=== PATIENT | female | born 1945 | race Two or more races ===

== ENCOUNTER 2020-10-16 18:20 | Inpatient (IN) ==
[2020-10-16] MEDS ORDERED: CARDIZEM INJ IVP STA (18:24)
[2020-10-16] MEDS ORDERED: CARDIZEM 125 MG in SODIUM CHLORIDE 100 ML IV SCH ×2 (18:30→20:00)
--- NOTE | 2020-10-16 18:34 | ED.PDOC ---
General ED Provider: Dr. LAKESHIA MORENO Chief Complaint: Palpitations Stated Complaint: Pt presents with chest palpitations. Sxs started earlier today and have been persistent all day. She has had associated SOB and has felt weak all over. She denies any F/C/N/V/diaphoresis. She denies any focal weakness. Nothing else has made her sxs better or worse and they are mild in nature. Time Seen by Provider: 10/16/20 18:24 Mode of Arrival: Wheelchair Information Source: Patient Primary Care Provider: HEATHER CORONA Sepsis Protocol: For patient's 13 years and over: Temp is 96.8 and below OR 101 and greater Pulse >90 BPM Resp >20/minute Acutely Altered Mental Status Are patient's symptoms suggestive of a new infection, such as: -Pneumonia -Skin, Soft Tissue -Endocarditis -UTI -Bone, Joint Infection -Implantable Device -Acute Abdominal Infection -Wound Infection -Meningitis -Blood Stream Catheter Infection -Unknown Review of Systems Review Of Systems Constitutional: Reports No symptoms Eyes: Reports No symptoms Ears, Nose, Mouth, Throat: Reports No symptoms Respiratory: Reports Short of air Cardiac: Reports Irregular heart rate and Lightheadedness GI: Reports No symptoms : Reports No symptoms Musculoskeletal: Reports No symptoms Skin: Reports No symptoms Neurological: Reports No symptoms Endocrine: Reports No symptoms Hematologic/Lymphatic: Reports No symptoms All Other Systems: Reviewed and Negative Physical Exam Physical Exam Appearance: Reports Well-appearing, No pain distress and Well-nourished Ill-appearing: None Pain Distress: None Eyes: Reports NATHALIE, EOMI and Conjunctiva clear ENT: Reports Not Examined Neck: Supple Respiratory: Reports Airway patent, Breath sounds clear, Breath sounds equal and Respirations nonlabored Cardiovascular: Reports Pulses normal, Irregular rhythm and Tachycardia GI/: Reports Soft, Nontender and Bowel sounds normal Musculoskeletal: Reports Normal strength, ROM intact, No edema and No calf tenderness Skin: Reports Warm, Dry and Normal color Neurological: Reports Sensation intact, Motor intact, Cranial nerves intact, Alert and Oriented Psychiatric: Reports Affect appropriate and Mood appropriate Interpretation EKG Interpretation Time of EKG #1: 18:36 Rate: Tachy Rhythm: Other (afib) Ectopy: None [place]: NL ST Segment: Normal Interpretation: Mild T-wave abnormalities Course Course Hematology/Chemistry: 10/16/20 18:41 10/16/20 18:41 Orders, Labs, Meds: Lab Review 10/16/20 10/16/20 18:41 18:41 WBC 6.20 RBC 4.63 Hgb 13.9 Hct 41.6 MCV 89.8 MCH 30.0 MCHC 33.4 RDW Coeff of Shalini 12.7 Plt Count 244 Immature Gran % (Auto) 0.3 Neut % (Auto) 50.7 Lymph % (Auto) 37.1 [place] % (Auto) 8.7 Eos % (Auto) 2.7 Baso % (Auto) 0.5 Neut # (Auto) 3.1 Lymph # (Auto) 2.3 [place] # (Auto) 0.5 Eos # (Auto) 0.2 Baso # (Auto) 0.0 Immature Gran # (Auto) 0.0 Sodium 140.6 Potassium 4.13 Chloride 104.9 Carbon Dioxide 26.9 Anion Gap 12.93 BUN 27.1 H Creatinine 1.39 H Estimated GFR (MDRD) 37.00 BUN/Creatinine Ratio 19.49 Glucose 98.2 Calcium 9.95 Total Bilirubin 0.93 AST 33.7 ALT 31.0 Alkaline Phosphatase 97.8 Total Creatine Kinase 162.8 H CK-MB (CK-2) 2.460 H CK-MB (CK-2) % 1.5100 Troponin I < 0.012 Total Protein 7.77 Albumin 4.52 Globulin 3.25 Albumin/Globulin Ratio 1.39 Amylase 101.3 Lipase 124.5 Orders Category Date Time Status EKG-(ED ONLY) Stat CARDIO 10/16/20 18:25 Completed AMYLASE Stat LAB 10/16/20 18:41 Completed CBC W/ AUTO DIFF Stat LAB 10/16/20 18:41 Completed COMPREHENSIVE METABOLIC PANEL Stat LAB 10/16/20 18:41 Completed CREATINE KINASE Stat LAB 10/16/20 18:41 Completed LIPASE Stat LAB 10/16/20 18:41 Completed RESPIRATORY PANEL 2.1 (PCR) Stat LAB 10/16/20 18:34 Received TROPONIN I Stat LAB 10/16/20 18:41 Completed Apixaban [Eliquis] MEDS 10/16/20 18:50 Discontinued 5 mg PO ONCE STA Diltiazem HCl [Cardizem Inj] MEDS 10/16/20 18:24 Discontinued 15 mg IVP ONCE STA Diltiazem HCl [Cardizem] 125 mg MEDS 10/16/20 18:30 Active 0.9 % Sodium Chloride [Sodium Chloride] 100 ml IV TITRATION Sodium Chloride 0.9% [Sodium Chloride] 1,000 ml MEDS 10/16/20 19:48 Active IV BOLUS CHEST, 1V AP ONLY Stat RADS 10/16/20 18:25 Completed Medications Generic Name Dose Route Start Last Admin Trade Name Freq PRN Reason Stop Dose Admin Diltiazem HCl 125 mg/ Sodium 125 mls @ 5 mls/hr 10/16/20 18:30 10/16/20 19:37 Chloride IV Not Given TITRATION ALYCE Protocol 5 MG/HR Sodium Chloride 1,000 mls @ 1,000 mls/hr 10/16/20 19:48 Sodium Chloride IV 10/16/20 20:47 BOLUS STA Discontinued Medications Generic Name Dose Route Start Last Admin Trade Name Freq PRN Reason Stop Dose Admin Apixaban 5 mg 10/16/20 18:50 Apixaban 5 Mg Tab PO 10/16/20 18:51 ONCE STA Diltiazem HCl 15 mg 10/16/20 18:24 10/16/20 19:31 Diltiazem Hcl Inj 25 Mg/5 Ml Vial IVP 10/16/20 18:25 15 mg ONCE STA Administration Vital Signs: Temp Pulse Resp BP Pulse Ox 10/16/20 18:22 97.0 F L 108 H 20 153/123 H 99 PILI Risk Score PILI Risk Score: Risk Score Odds of by 30D 0 0.1 (0.1-0.2) 1 0.3 (0.2-0.3) 2 0.4 (0.3-0.5) 3 0.7 (0.6-0.9) 4 1.2 (1.0-1.5) 5 2.2 (1.9-2.6) 6 3.0 (2.5-3.6) 7 4.8 (3.8-6.1) Discharge Plan Discharge Patient Disposition: ADMITTED INPATIENT Discharge Problem: Atrial fibrillation with rapid ventricular response, Palpitations ED Provider: LAKESHIA MORENO Condition: Stable Physician Progress Note: I reviewed pt results. CBC is unremarkable. Chems show a Cr. of 1.4. Her CK is 163 with a Trop that is negative. CXR is unremarkable. HR is beter at around 90-100 but she remains in Afib. I spoke with Dr. Nieto and he recommended admitting her here with his consult. He can order and Echo and we can see if she converts. She will be started in Eliquis.
[2020-10-16 18:45] LABS: BASOPHILS % (AUTO) 0.5 % (0.0-3.0); EOSINOPHILS # (AUTO) 0.2 K/ul (0.0-0.7); EOSINOPHILS % (AUTO) 2.7 % (0.0-7.0); HEMATOCRIT 41.6 % (37.0-47.0); HEMOGLOBIN 13.9 g/dl (12.0-16.0); IMMATURE GRANULOCYTE % (AUTO) 0.3 % (0.0-5.0); LYMPHOCYTES # (AUTO) 2.3 K/uL (0.60-3.4); LYMPHOCYTES % (AUTO) 37.1 (10.0-50.0); MEAN CORPUSCULAR HGB CONC 33.4 (31.8-35.4); MEAN CORPUSCULAR VOLUME 89.8 fl (81.0-99.0); MONOCYTES # (AUTO) 0.5 K/uL (0.4-2.0); MONOCYTES % (AUTO) 8.7 (0-10); NEUTROPHILS # (AUTO) 3.1 K/ul (2.0-6.9); NEUTROPHILS % (AUTO) 50.7 % (42.2-75.2); PLATELET COUNT 244 10^3/uL (140-440); RDW COEFFICIENT OF VARIATION 12.7 % (11.6-14.8); RED BLOOD COUNT 4.63 10^6/ul (4.20-5.40)
[2020-10-16] MEDS ORDERED: ELIQUIS PO STA (18:50)
[2020-10-16 19:04] LABS: ALBUMIN 4.52 g/dL (3.5-5.0); ALKALINE PHOSPHATASE 97.8 U/L (53-141); AMYLASE 101.3 U/L (30-110); ASPARTATE AMINO TRANSFERASE 33.7 U/L (14-36); BILIRUBIN,TOTAL 0.93 mg/dL (0.2-1.3); BLOOD UREA NITROGEN 27.1 mg/dL (7-17); CALCIUM 9.95 mg/dL (8.4-10.2); CARBON DIOXIDE 26.9 mmol/L (22-30.0); CHLORIDE 104.9 mmol/L (98-107); CREATINE KINASE 162.8 U/L (30-135); CREATININE 1.39 mg/dL (0.60-1.30); GLUCOSE 98.2 mg/dL (74-106); LIPASE 124.5 U/L (23-300); POTASSIUM 4.13 mmol/L (3.5-5.1); SODIUM 140.6 mmol/L (134.5-145); TOTAL PROTEIN 7.77 g/dL (6.3-8.2)
[2020-10-16 19:14] LABS: TROPONIN I < 0.012 ng/ml (0.0000-0.120)
--- NOTE | 2020-10-16 19:35 | DI ---
EXAM: Single AP view of the chest 10/16/2020 HISTORY: Chest discomfort. COMPARISON: None. FINDINGS: There is no focal consolidation or large pleural effusion. There is hyperinflation of the lungs, whic h could be seen in COPD. The trachea is midline. The cardiomediastinal silhouette is within the normal limits. The osseous structures are intact. IMPRESSIONS: No focal consolidation, large pleural effusion, or discernible pneumothorax. COPD changes.
[2020-10-16 19:48] LABS: BORDETELLA PARAPERTUSSIS (PCR) NOT DETECTED (NOT DETECT); BORDETELLA PERTUSSIS (PCR) NOT DETECTED (NOT DETECT); CHLAMYDIA PNEUMONIAE (PCR) NOT DETECTED (NOT DETECT); CORONAVIRUS 229E (PCR) NOT DETECTED (NOT DETECT); CORONAVIRUS HKU1 (PCR) NOT DETECTED (NOT DETECT); CORONAVIRUS NL63 (PCR) NOT DETECTED (NOT DETECT); CORONAVIRUS OC43 (PCR) NOT DETECTED (NOT DETECT); HUMAN METAPNEUMOVIRUS (PCR) NOT DETECTED (NOT DETECT); HUMAN RHINOVIRUS/ENTEROV (PCR) NOT DETECTED (NOT DETECT); INFLUENZA B (PCR) NOT DETECTED (NOT DETECT); MYCOPLASMA PNEUMONIAE (PCR) NOT DETECTED (NOT DETECT); PARAINFLUENZA VIRUS 1 (PCR) NOT DETECTED (NOT DETECT); PARAINFLUENZA VIRUS 2 (PCR) NOT DETECTED (NOT DETECT); PARAINFLUENZA VIRUS 3 (PCR) NOT DETECTED (NOT DETECT); PARAINFLUENZA VIRUS 4 (PCR) NOT DETECTED (NOT DETECT); RESPIRATORY SYNCYTIAL V (PCR) NOT DETECTED (NOT DETECT); SARS_COV_2 (PCR) NOT DETECTED (NOT DETECT)
[2020-10-16] MEDS ORDERED: SODIUM CHLORIDE 1,000 ML IV STA (19:48)
[2020-10-16] MEDS ORDERED: NITROSTAT SL PRN (19:59)
[2020-10-16 20:38] LABS: ADENOVIRUS (PCR) NOT DETECTED (NOT DETECT)
[2020-10-17 00:47] VITALS: BMI 36.6
[2020-10-17 05:11] LABS: CHOLESTEROL 163.4 mg/dL (0-200); HDL CHOLESTEROL 40.1 mg/dL (35-80); TRIGLYCERIDES 189.4 mg/dL (0-150)
[2020-10-17] MEDS ORDERED: ATROPINE SULFATE PFS IVP PRN (07:16)
[2020-10-17] MEDS ORDERED: TYLENOL PO PRN (07:16)
[2020-10-17 07:56] LABS: BASOPHILS % (AUTO) 0.7 % (0.0-3.0); EOSINOPHILS # (AUTO) 0.2 K/ul (0.0-0.7); EOSINOPHILS % (AUTO) 2.9 % (0.0-7.0); HEMATOCRIT 36.2 % (37.0-47.0); HEMOGLOBIN 11.9 g/dl (12.0-16.0); IMMATURE GRANULOCYTE % (AUTO) 0.3 % (0.0-5.0); LYMPHOCYTES # (AUTO) 1.7 K/uL (0.60-3.4); LYMPHOCYTES % (AUTO) 29.7 (10.0-50.0); MEAN CORPUSCULAR HEMOGLOBIN 29.8 pg (27.0-31.0); MEAN CORPUSCULAR HGB CONC 32.9 (31.8-35.4); MEAN CORPUSCULAR VOLUME 90.7 fl (81.0-99.0); MONOCYTES # (AUTO) 0.6 K/uL (0.4-2.0); MONOCYTES % (AUTO) 9.6 (0-10); NEUTROPHILS # (AUTO) 3.3 K/ul (2.0-6.9); NEUTROPHILS % (AUTO) 56.8 % (42.2-75.2); PLATELET COUNT 217 10^3/uL (140-440); RDW COEFFICIENT OF VARIATION 12.6 % (11.6-14.8); RED BLOOD COUNT 3.99 10^6/ul (4.20-5.40); WHITE BLOOD COUNT 5.83 K/ul (4.6-10.2)
[2020-10-17 08:05] LABS: CREATINE KINASE 114.5 U/L (30-135)
[2020-10-17] MEDS ORDERED: ASPIRIN EC PO SCH (08:30)
[2020-10-17 08:35] LABS: TROPONIN I < 0.012 ng/ml (0.0000-0.120)
[2020-10-17] MEDS ORDERED: SODIUM CHLORIDE 1,000 ML IV SCH ×2 (09:00→12:00)
[2020-10-17] MEDS ORDERED: COZAAR PO SCH ×2 (09:00)
--- NOTE | 2020-10-17 09:03 | PCM.PROG ---
Attending Provider: ATTENDING PROVIDER: Dr. LAKESHIA MORENO This patient is seen with Marlen Woods, Nurse Practitioner. DATE OF SERVICE: 10/17/20 SUBJECTIVE: This 75 year old OTHER F was hospitalized 10/16/20. The patient is resting comfortably. Cardizem drip stopped this morning. The patient denies any palpitation. yesterday morning started with palpitations, shortness of breath and weakness which persisted throughout the day. She has no known cardiac history. REVIEW OF SYSTEMS: CONSTITUTIONAL: No night sweats. Fatigue. No fever or chills. HEENT: Eyes: No visual changes. No eye pain. No eye discharge. ENT: No runny nose. No epistaxis. No sinus pain. No odynophagia. No congestion. RESPIRATORY: No cough, no congestion. No hemoptysis. No shortness of breath. CARDIOVASCULAR: No angina symptoms. No CHF symptoms. No atypical chest pain for CAD. Palpitations. No orthopnea.. GASTROINTESTINAL: No abdominal pain. No nausea or vomiting. No diarrhea or constipation. No hematemesis. No hematochezia. GENITOURINARY: No urgency. No frequency. No dysuria. No hematuria. No obstructive symptoms. No discharge. No pain. No significant abnormal bleeding. MUSCULOSKELETAL: No musculoskeletal pain; no joint swelling. NEUROLOGICAL: Awake, alert, oriented to time, place and person. No headache. No neck pain. No syncope. No seizures. No dizziness. PSYCHIATRIC: Not anxious. No depression. No suicidal thoughts. No homicidal thoughts. SKIN: No rash. No lesions. No wounds. ENDOCRINE: No unexplained weight loss. No weight gain. HEMATOLOGIC/LYMPHATIC: No anemia. No purpura. No petechiae. No prolonged or excessive bleeding. No palpable lymph nodes. PHYSICAL EXAMINATION: GENERAL: The patient is awake, alert and oriented, lying in bed in no distress. VITAL SIGNS: Temperature 97.6 F, Pulse 60, Respiratory Rate 18, BP 120/74, Pulse Ox 98% HEENT: Head normocephalic, atraumatic. Eyes: Extraocular muscles are intact. Pupils are equal, round and reactive to light and accommodation. Ears: No lesions. Nose appeared normal. Throat: No exudate or erythema. NECK: Supple. No JVD, no carotid bruit. No lymphadenopathy or thyromegaly. LUNGS: Clear to auscultation. Percussion note normal. Chest symmetrical. HEART: S1, S2, no S3. No murmurs. No cyanosis or clubbing. No ascites. Pulses: Dorsalis pedis and posterior tibial pulses +1 to +2 both sides. ABDOMEN: Soft. Non-tender. Bowel sounds active. No CVA tenderness. No mass felt. EXTREMITIES: No edema. Full range of motion of all extremities, equal. NEUROLOGIC: No focal deficit. Cranial nerves II through XII are grossly intact. No headache. No double vision. SKIN: Not dry. Intact. Turgor-normal. LYMPHATIC: No palpable lymph nodes/no lymphedema. MUSCULOSKELETAL: Normal joints with no swelling. Muscle tone is normal. LAB REVIEW: 10/17/20 07:49 10/16/20 18:41 10/17/20 07:49: WBC 5.83, RBC 3.99 L, Hgb 11.9 L, Hct 36.2 L, MCV 90.7, MCH 29.8, MCHC 32.9, RDW Coeff of Shalini 12.6, Plt Count 217, Immature Gran % (Auto) 0.3, Neut % (Auto) 56.8, Lymph % (Auto) 29.7, [place] % (Auto) 9.6, Eos % (Auto) 2.9, Baso % (Auto) 0.7, Neut # (Auto) 3.3, Lymph # (Auto) 1.7, [place] # (Auto) 0.6, Eos # (Auto) 0.2, Baso # (Auto) 0.0, Immature Gran # (Auto) 0.0 10/17/20 04:53: Triglycerides 189.4 H, Cholesterol 163.4, LDL Cholesterol, Calc 85, VLDL Cholesterol 38 H, HDL Cholesterol 40.1, Cholesterol/HDL Ratio 4.1 L 10/17/20 04:53: Troponin I < 0.012 10/16/20 18:41: TSH 2.670 10/16/20 18:41: Sodium 140.6, Potassium 4.13, Chloride 104.9, Carbon Dioxide 26.9, Anion Gap 12.93, BUN 27.1 H, Creatinine 1.39 H, Estimated GFR (MDRD) 37.00, BUN/Creatinine Ratio 19.49, Glucose 98.2, Calcium 9.95, Total Bilirubin 0.93, AST 33.7, ALT 31.0, Alkaline Phosphatase 97.8, Total Creatine Kinase 162.8 H, CK-MB (CK-2) 2.460 H, CK-MB (CK-2) % 1.5100, Troponin I < 0.012, Total Protein 7.77, Albumin 4.52, Globulin 3.25, Albumin/Globulin Ratio 1.39, Amylase 101.3, Lipase 124.5 10/16/20 18:41: WBC 6.20, RBC 4.63, Hgb 13.9, Hct 41.6, MCV 89.8, MCH 30.0, MCHC 33.4, RDW Coeff of Shalini 12.7, Plt Count 244, Immature Gran % (Auto) 0.3, Neut % (Auto) 50.7, Lymph % (Auto) 37.1, [place] % (Auto) 8.7, Eos % (Auto) 2.7, Baso % (Auto) 0.5, Neut # (Auto) 3.1, Lymph # (Auto) 2.3, [place] # (Auto) 0.5, Eos # (Auto) 0.2, Baso # (Auto) 0.0, Immature Gran # (Auto) 0.0 10/16/20 18:34: Adenovirus (PCR) Not detected, B. pertussis DNA (PCR) Not detected, B.parapertussis DNA PCR Not detected, C. pneumoniae DNA (PCR) Not detected, Coronavirus OC43 (PCR) Not detected, Coronavirus HKU1 (PCR) Not detected, Coronavirus 229E (PCR) Not detected, Coronavirus NL63 (PCR) Not detected, Human Metapneumovir PCR Not detected, Influenza Type A (PCR) Not detected, Influenza B (RT-PCR) Not detected, M. pneumoniae (PCR) Not detected, Parainfluenza 1 (PCR) Not detected, Parainfluenza 2 (PCR) Not detected, Parainfluenza 3 (PCR) Not detected, Parainfluenza 4 (PCR) Not detected, RSV (PCR) Not detected, Entero/Rhino (PCR) Not detected, SARS-CoV-2 (PCR) Not detected ASSESSMENT: Please see below. 1. New onset atrial fibrillation, rate now controlled 2. Hypertension 3. Obesity 4. Dyslipdiemia PLAN: 1. T4 and TSH 2. A1c 3. Eliquis 5mg BID 4. Cardizem 60mg BID 5. Losartan 50mg daily 6. 2D echo 7. CHADS score III 8. U/A Plan and coordination of the patient's care discussed in the presence of Continuing Education Specialist and nurse. SCRIBED BY: Anastasia AGUILERA scribed while in presence of service performed by Dr. Nieto/Marlen Woods APRN on 10/17/20 ([id number])
[2020-10-17 09:06] LABS: ALANINE AMINOTRANSFERASE 23.9 U/L (0-35); ALBUMIN 3.74 g/dL (3.5-5.0); ALKALINE PHOSPHATASE 73.7 U/L (53-141); ASPARTATE AMINO TRANSFERASE 34.4 U/L (14-36); BILIRUBIN,TOTAL 0.81 mg/dL (0.2-1.3); BLOOD UREA NITROGEN 26.5 mg/dL (7-17); CALCIUM 9.11 mg/dL (8.4-10.2); CARBON DIOXIDE 24.5 mmol/L (22-30.0); CHLORIDE 108.7 mmol/L (98-107); CREATININE 1.03 mg/dL (0.60-1.30); GLUCOSE 114.9 mg/dL (74-106); POTASSIUM 3.49 mmol/L (3.5-5.1); SODIUM 141.1 mmol/L (134.5-145); TOTAL PROTEIN 6.66 g/dL (6.3-8.2)
--- NOTE | 2020-10-17 09:07 | CONS ---
DATE OF CONSULTATION: 10/17/2020 REASON FOR CONSULTATION: Atrial fibrillation with rapid ventricular response. HISTORY OF PRESENT ILLNESS: The patient was hospitalized through the emergency room. The patient had fluttering and palpitation with weakness and shortness of breath the morning of hospitalization. The patient EKG had atrial fibrillation with rapid ventricular response 130 per minute. The patient had severe hypertension in the ER noted. The patient has been on Cardizem drip to control her rate to 90-110 per minute. Early this morning at 1:30 am after being in atrial fibrillation more than 12 hours the patient converted to sinus rhythm. REVIEW OF SYSTEMS: CONSTITUTIONAL: No night sweats. No fatigue, malaise, lethargy. No fever or chills. HEENT: Eyes: No visual changes. No eye pain. No eye discharge. ENT: No sinus drainage. No epistaxis. No sinus pain. No sore throat. No odynophagia. No ear pain. No congestion. RESPIRATORY: No cough, no congestion. No hemoptysis. No shortness of breath. CARDIOVASCULAR: No angina symptoms. No CHF symptoms. No atypical chest pain for CAD. No palpitations. No orthopnea. GASTROINTESTINAL: No abdominal pain. No nausea or vomiting. No diarrhea or constipation. No hematemesis. No hematochezia. GENITOURINARY: No urgency. No frequency. No dysuria. No hematuria. No obstructive symptoms. No discharge. No pain. No significant abnormal bleeding. MUSCULOSKELETAL: No musculoskeletal pain. No joint swelling. NEUROLOGICAL: No headache. No neck pain. No syncope. No seizures. No dizziness. PSYCHIATRIC: Not anxious. No depression. No suicidal thoughts. No homicidal thoughts. SKIN: No rash. No lesions. No wounds. ENDOCRINE: No unexplained weight loss. No weight gain. HEMATOLOGIC/LYMPHATIC: No anemia. No purpura. No petechiae. No prolonged or excessive bleeding. No palpable lymph nodes. PHYSICAL EXAMINATION: HEENT: Head normocephalic, atraumatic. Eyes: Extraocular muscles are intact. Pupils are equal, round and reactive to light and accommodation. Ears: No lesions. Nose appeared normal. Throat: No exudate or erythema. NECK: Supple. No JVD, no carotid bruit. No lymphadenopathy or thyromegaly. LUNGS: Clear to auscultation. Percussion note normal. Chest symmetrical. HEART: S1, S2, no S3. No murmurs. No cyanosis or clubbing. No ascites. Pulses: Dorsalis pedis and posterior tibial pulses +2 bilaterally. ABDOMEN: Soft. Nontender. Bowel sounds active. No CVA tenderness. No mass felt. EXTREMITIES: No edema. Full range of motion of all extremities, equal. NEUROLOGIC: No focal deficit. Cranial nerves II through XII are grossly intact. No headache, no double vision or headache. SKIN: Not dry. Intact. Turgor - normal. LYMPHATIC: No palpable lymph nodes/no lymphedema. MUSCULOSKELETAL: Normal joints with no swelling. Muscle tone is normal. ASSESSMENT: 1. New onset atrial fibrillation, now converted to sinus rhythm CHADS II VASC SCORE 2. Hypertension 3. Obesity 4. Dyslipdiemia RECOMMENDATIONS: 1. Start Cardizem 60mg BID which has already been done. 2. Losartan 50mg daily 3. 2D echo to evaluate LV function and LA size and valvular structures. 4. Discontinue Amlodipine 5. Continue Atorvastatin ADDENDUM: The patient is in sinus rhythm. Echocardiogram was done which showed normal LV contractility with LVH, enlarged LA cavity which is 4.4cm, There was thrombi noted, valvular structures normal. RECOMMENDATION: 1. Continue Eliquis 2. The patient's atrial fibrillation load 12 hours initially so to rule out paroxysmal atrial fibrillation having repetition on symptoms atrial fibrillation the patient could be followed as an outpatient with no evidence of atrial fibrillation by symptoms or event monitor that could be done 6 weeks from now. The patient can go off Eliquis but until then she needs to be on Eliquis and closely followed. 3. Discontinue Amlodipine as she is going to be on Cardizem. 4. We will increase the Cardizem depending upon the patient's rate. 5. Eliquis discussed with intracranial bleed and GI bleed and not to use it with nonsteroidal antiinflammatory. The patient's condition is stable for now. Thanks for referral. Will follow. RUELD
[2020-10-17] MEDS: LIPITOR PO SCH (09:15)
[2020-10-17] MEDS: CARDIZEM PO SCH ×2 (09:16→20:46)
[2020-10-17] MEDS: ELIQUIS PO SCH ×2 (09:16→20:46)
[2020-10-17 10:25] LABS: BILIRUBIN,URINE Negative (NEGATIVE); CLARITY,URINE Clear (CLEAR); COLOR,URINE Yellow (YELLOW); GLUCOSE, URINE (UA) Negative (NEGATIVE); KETONES,URINE Negative (NEGATIVE); LEUKOCYTE ESTERASE ,URINE 1+ (NEGATIVE); NITRITE,URINE Negative (NEGATIVE); PROTEIN,URINE Negative (NEGATIVE); URINE, BLOOD Negative (NEGATIVE); UROBILINOGEN,URINE 0.2 (0.2)
[2020-10-17 10:37] LABS: MUCUS,URINE TRACE (NOT PRESENT); SQUAMOUS EPITHELIAL CELL,UR 0-2 (0-5)
[2020-10-17 15:40] LABS: CREATINE KINASE 99.4 U/L (30-135)
[2020-10-17 15:56] LABS: TROPONIN I < 0.012 ng/ml (0.0000-0.120)
[2020-10-17] MEDS ORDERED: NORVASC PO SCH (21:00)
[2020-10-17] MEDS ORDERED: MACRODANTIN PO SCH (21:00)
[2020-10-17] MEDS ORDERED: PRILOSEC PO SCH (21:00)
[2020-10-17] MEDS ORDERED: TENORMIN PO SCH (21:00)
[2020-10-17] MEDS ORDERED: COZAAR PO ONE (21:59)
[2020-10-18] MEDS ORDERED: SODIUM CHLORIDE 1,000 ML IV SCH (01:30)
[2020-10-18 05:08] LABS: BASOPHILS % (AUTO) 0.7 % (0.0-3.0); EOSINOPHILS # (AUTO) 0.2 K/ul (0.0-0.7); EOSINOPHILS % (AUTO) 3.8 % (0.0-7.0); HEMATOCRIT 35.6 % (37.0-47.0); HEMOGLOBIN 11.3 g/dl (12.0-16.0); IMMATURE GRANULOCYTE % (AUTO) 0.5 % (0.0-5.0); LYMPHOCYTES # (AUTO) 1.8 K/uL (0.60-3.4); LYMPHOCYTES % (AUTO) 43.2 (10.0-50.0); MEAN CORPUSCULAR HEMOGLOBIN 29.7 pg (27.0-31.0); MEAN CORPUSCULAR HGB CONC 31.7 (31.8-35.4); MEAN CORPUSCULAR VOLUME 93.7 fl (81.0-99.0); MONOCYTES # (AUTO) 0.4 K/uL (0.4-2.0); MONOCYTES % (AUTO) 8.6 (0-10); NEUTROPHILS # (AUTO) 1.8 K/ul (2.0-6.9); NEUTROPHILS % (AUTO) 43.2 % (42.2-75.2); PLATELET COUNT 180 10^3/uL (140-440); RDW COEFFICIENT OF VARIATION 12.7 % (11.6-14.8); WHITE BLOOD COUNT 4.19 K/ul (4.6-10.2)
[2020-10-18 06:10] VITALS: BP 155/77; TEMP 97.1
[2020-10-18 06:56] LABS: ALANINE AMINOTRANSFERASE 20.9 U/L (0-35); ALBUMIN 3.59 g/dL (3.5-5.0); ALKALINE PHOSPHATASE 74.2 U/L (53-141); ASPARTATE AMINO TRANSFERASE 25.2 U/L (14-36); BILIRUBIN,TOTAL 0.77 mg/dL (0.2-1.3); BLOOD UREA NITROGEN 21.8 mg/dL (7-17); CALCIUM 8.83 mg/dL (8.4-10.2); CARBON DIOXIDE 25.8 mmol/L (22-30.0); CREATININE 0.94 mg/dL (0.60-1.30); POTASSIUM 3.72 mmol/L (3.5-5.1); TOTAL PROTEIN 6.27 g/dL (6.3-8.2)
[2020-10-18] MEDS ORDERED: TENORMIN PO ONE (08:54)
[2020-10-18] MEDS ORDERED: K-DUR PO ONE (08:55)
[2020-10-18] MEDS ORDERED: COZAAR PO SCH (09:00)
[2020-10-18] MEDS: CARDIZEM PO SCH (09:06)
[2020-10-18] MEDS: ELIQUIS PO SCH (09:07)
[2020-10-18] MEDS: LIPITOR PO SCH (09:07)
--- NOTE | 2020-10-18 09:07 | PCM.CONS ---
CONSULTING PROVIDER: Dr. MITZY CRYSTAL ATTENDING PROVIDER: Dr. LAKESHIA MORENO DATE OF SERVICE: 10/18/20 SUBJECTIVE: This 75 year old OTHER F was hospitalized 10/16/20 with atrial fibrillation with rapid ventricular response. The patient is controlled with sinus rhythm. She converted to sinus rhythm on her own with 4-5 hours after admission to the floor. Total duration of atrial fibrillation was approximately 12-14 hours. REVIEW OF SYSTEMS: CONSTITUTIONAL: No night sweats. No fatigue, malaise, lethargy. No fever or chills. HEENT: Eyes: No visual changes. No eye pain. No eye discharge. ENT: No runny nose. No epistaxis. No sinus pain. No odynophagia. No congestion. RESPIRATORY: No cough, no congestion. No hemoptysis. No shortness of breath. CARDIOVASCULAR: No angina symptoms. No CHF symptoms. No atypical chest pain for CAD. No palpitations. No orthopnea. GASTROINTESTINAL: No abdominal pain. No nausea or vomiting. No diarrhea or constipation. No hematemesis. No hematochezia. GENITOURINARY: No urgency. No frequency. No dysuria. No hematuria. No obstructive symptoms. No discharge. No pain. No significant abnormal bleeding. MUSCULOSKELETAL: No musculoskeletal pain; no joint swelling. NEUROLOGICAL: Awake, alert, oriented to time, place and person. No headache. No neck pain. No syncope. No seizures. No dizziness. PSYCHIATRIC: Not anxious. No depression. No suicidal thoughts. No homicidal thoughts. SKIN: No rash. No lesions. No wounds. ENDOCRINE: No unexplained weight loss. No weight gain. HEMATOLOGIC/LYMPHATIC: No anemia. No purpura. No petechiae. No prolonged or excessive bleeding. No palpable lymph nodes. PHYSICAL EXAMINATION: GENERAL: The patient is awake, alert and oriented, lying in bed in no distress. VITAL SIGNS: Temperature 97.1 F, Pulse 60, Respiratory Rate 16, BP 155/77, Pulse Ox 98% HEENT: Head normocephalic, atraumatic. Eyes: Extraocular muscles are intact. Pupils are equal, round and reactive to light and accommodation. Ears: No lesions. Nose appeared normal. Throat: No exudate or erythema. NECK: Supple. No JVD, no carotid bruit. No lymphadenopathy or thyromegaly. LUNGS: Clear to auscultation. Percussion note normal. Chest symmetrical. HEART: S1, S2, no S3. No murmurs. No cyanosis or clubbing. No ascites. Pulses: Dorsalis pedis and posterior tibial pulses +1 to +2 both sides. ABDOMEN: Soft. Non-tender. Bowel sounds active. No CVA tenderness. No mass felt. EXTREMITIES: No edema. Full range of motion of all extremities, equal. NEUROLOGIC: No focal deficit. Cranial nerves II through XII are grossly intact. No headache, no double vision or headache. SKIN: Warm and dry. Intact. Turgor-normal. LYMPHATIC: No palpable lymph nodes/no lymphedema. MUSCULOSKELETAL: Normal joints with no swelling. Muscle tone is normal. LAB REVIEW: 10/18/20 04:45 10/18/20 04:45 10/18/20 04:45: Sodium 140.0, Potassium 3.72, Chloride 109.0 H, Carbon Dioxide 25.8, Anion Gap 8.92, BUN 21.8 H, Creatinine 0.94, Estimated GFR (MDRD) 58.00, BUN/Creatinine Ratio 23.19, Glucose 90.0, Calcium 8.83, Total Bilirubin 0.77, AST 25.2, ALT 20.9, Alkaline Phosphatase 74.2, Total Protein 6.27 L, Albumin 3.59, Globulin 2.68, Albumin/Globulin Ratio 1.33 10/18/20 04:45: WBC 4.19 L, RBC 3.80 L, Hgb 11.3 L, Hct 35.6 L, MCV 93.7, MCH 29.7, MCHC 31.7 L, RDW Coeff of Shalini 12.7, Plt Count 180, Immature Gran % (Auto) 0.5, Neut % (Auto) 43.2, Lymph % (Auto) 43.2, [place] % (Auto) 8.6, Eos % (Auto) 3.8, Baso % (Auto) 0.7, Neut # (Auto) 1.8 L, Lymph # (Auto) 1.8, [place] # (Auto) 0.4, Eos # (Auto) 0.2, Baso # (Auto) 0.0, Immature Gran # (Auto) 0.0 10/17/20 15:23: Total Creatine Kinase 99.4, Troponin I < 0.012 10/17/20 09:55: Troponin I < 0.012 10/17/20 09:40: Urine Color Yellow, Urine Clarity Clear, Urine pH 5.0, Ur Specific [place] 1.020, Urine Protein Negative, Urine Glucose (UA) Negative, Urine Ketones Negative, Urine Blood Negative, Urine Nitrite Negative, Urine Bilirubin Negative, Urine Urobilinogen 0.2, Ur Leukocyte Esterase 1+ H, Urine Mi croscopic WBC 10-20, Ur Squamous Epith Cells 0-2, Urine Mucus Trace 10/17/20 07:49: Free T4 1.50 10/17/20 07:49: Hemoglobin A1c 5.86 10/17/20 07:49: Total Creatine Kinase 114.5, Troponin I < 0.012 10/17/20 07:49: Sodium 141.1, Potassium 3.49 L, Chloride 108.7 H, Carbon Dioxide 24.5, Anion Gap 11.39, BUN 26.5 H, Creatinine 1.03, Estimated GFR (MDRD) 52.00, BUN/Creatinine Ratio 25.72, Glucose 114.9 H, Calcium 9.11, Total Bilirubin 0.81, AST 34.4, ALT 23.9, Alkaline Phosphatase 73.7, Total Protein 6.66, Albumin 3.74, Globulin 2.92, Albumin/Globulin Ratio 1.28 10/16/20 18:41: Thyroxine (T4) 10.4 ASSESSMENT: 1. Atrial fibrillation paroxysmal CHADS score of . 2. Hypertension 3. Dyslipidemia 4. Obesity Please see below. RECOMMENDATIONS/PLAN: 1. Discontinue Omeprazole 2. The patient is on Eliquis, Cardizem, Atenolol and Losartan along with Atorvastatin and Prilosec 3. Eliquis education carried out with side effects of GI bleed and intracranial bleed. No non-steroidal anti-inflammatory 4. The patient was told to followup by me and again I had seen the patient on consult and I would like to see the patient on Wednesday morning to which she agreed. If she goes into palpitations and last more than 5 minutes advised to take extra Cardizem and keeping legs up. If it still continues after half an hour to come to the emergency room. 5. The patient's echocardiogram showed LVH with La cavity 4.5cm with normal LV contractility and normal valvular structures. 6. The patient is also advised to discontinued caffeine containing products in excess 7. The patient's potassium on discharge is 3.49 borderline low, she will be started on Potassium supplements to be taken for 5 days CONDITION: Stable SCRIBED BY: Anastasia AGUILERA scribed while in presence of service performed by Dr. MITZY CRYSTAL on 10/18/20 ([id number])
--- NOTE | 2020-10-18 09:20 | PCM.PROG ---
Date Seen by Provider: 10/18/20 Time Seen by Provider: 06:00 Subjective: feels better, Denies any chest pain, palpitations or shortness of breath. has been seen and Followed by Cemetery Counselor. had an Echo yesterday. Objective: Vitals: T=97.1 F, P=60, R=16, FA=013/77, SPO2=98 HEENT: [mucus membranes moist ] Neck: [supple] Lungs: [Clinically clear bilaterally ] CVS: [Regular S1 and S2 only ] Abdomen: [] Extremities: [no Edema ] Neurological: [AAOx3 no focal deficits ] Skin: [No rash ] Lab/Tests/Diagnostic Imaging: [ See lab tab. See ECHO results. THIS AM EKG - Normal sinus Rate 62, IA interval 186] Electrolytes reviewed unremarkable. (1) Atrial fibrillation with rapid ventricular response: Status: Acute Code(s): I48.91 - Unspecified atrial fibrillation SNOMED Code(s): 775229972635590 Assessment: Resolved now in Normal SINUS. Appreciate Cardiology input. on anticoagulation for stroke prevention. Feels well ready to go home. Plan: Discharge planning and follow up Per fixture designer. See discharge summary.
--- NOTE | 2020-10-18 10:45 | CM.DICTOOL ---
ADMISSION: 10/16/20 21:09 DISCHARGE: OCTOBER 18, 2020 DATE OF SERVICE: 10/18/20 FINAL DIAGNOSIS NEW ONSET ATRIAL FIBRILLATION, RATE NOW CONTROLLED HYPERTENSION OBESITY DYSLIPIDEMIA HYPOKALEMIA HX: COLOVESICAL FISTULA DIVERTICULITIS ESSENTIAL HYPERTENSION GERD MILD INTERMITTENT ASTHMA MIXED HYPERLIPIDEMIA RECURRENT UTI - ON MACROBID PROPHYLAXIS OBESITY POST-MENOPAUSAL PRIMARY OA INVOLVING MULTIPLE JOINTS VIT D DEFICIENCY PROCEDURES: CARDIAC CATH X 2 , ONE PER DR. WEATHERS WITH MINIMAL BLOCKAGE, 2ND AT [facility] ( RECORDS TO BE REQUESTED ) ? DATES CHOLECYSTECTOMY COLON SURGERY INCISIONAL HERNIA REPAIR INGUINAL HERNIA REPAIR, RIGHT JOINT REPLACEMENT TOTAL KNEE ARTHROPLASTY LEFT TOTAL KNEE ARTHROPLASTY RIGHT 06/16/2018 TUBAL LIGATION CODE STATUS: FULL CODE LAST VITALS Temp Pulse Resp BP Pulse Ox 97.1 F L 60 16 155/77 H 98 10/18/20 06:00 10/18/20 06:00 10/18/20 07:29 10/18/20 06:00 10/18/20 06:00 TAKE THESE MEDICATIONS AT HOME Apixaban (Apixaban 5 Mg Tab) 5 mg PO BID [facility] -- ( NEW) Last Admin: 10/18/20 09:07 Dose: 5 mg Atorvastatin Calcium (Atorvastatin Calcium 20 Mg Tablet) 20 mg PO QAM [facility] Last Admin: 10/18/20 09:07 Dose: 20 mg Diltiazem HCl (Diltiazem Hcl 60 Mg Tablet) 60 mg PO Q12HR [facility] -- (NEW) Last Admin: 10/18/20 09:06 Dose: 60 mg Losartan Potassium (Losartan Potassium 25 Mg Tablet) 100 mg PO DAILY IN THE AM [facility] -- ( HOME MED) Last Admin: 10/18/20 09:06 Dose: 100 mg Nitrofurantoin Macrocrystals (Nitrofurantoin Macrocrystal 50 Mg Capsule) 100 mg PO BEDTIME [facility] Last Admin: 10/17/20 20:48 Dose: Not Given Omeprazole (Omeprazole 20 Mg Capsule.Dr) 20 mg PO BEDTIME [facility] Last Admin: 10/17/20 20:45 Dose: 20 mg POTASSIUM 20 MEQ PO BID X 5 DAYS -- ( NEW) ATENOLOL 25 MG PO IN THE AM -- ( CHANGED HOME MED) VITAMIN D 50,000 UNITS PO WEEKLY -- ( HOME MED) ALLERGIES levofloxacin [From Levaquin] Adverse Reaction (Verified 10/16/20 21:06) metronidazole [From Flagyl] Adverse Reaction (Verified 10/16/20 21:06) sulfamethoxazole Adverse Reaction (Verified 10/16/20 21:06) DISCONTINUED MEDICATIONS 1). AMLODIPINE 2). ASPIRIN 3). ATENOLOL 100 MG BY MOUTH DAILY ( DOSAGE WAS CHANGED) NEW PRESCRIPTIONS: 1). POTASSIUM 20 MEQ PO BID X 5 DAYS 2). COZAAR 100 MG PO IN THE AM 3). ATENOLOL CHANGED TO 25 MG PO IN THE AM 4). ELIQUIS 5 MG PO BID 5). CARDIZEM 60 MG PO BID SMOKING: N/A DISEASE SPECIFIC EDUCATION: A-FIB HYPERTENSION MEDICATIONS ACTIVITY PRECAUTIONS BLEEDING PRECAUTIONS HEART HEALTHY DIET COVID 19/ PRECAUTIONS LAB REVIEW: 10/18/20 04:45 10/18/20 04:45 10/18/20 04:45: Sodium 140.0, Potassium 3.72, Chloride 109.0 H, Carbon Dioxide 25.8, Anion Gap 8.92, BUN 21.8 H, Creatinine 0.94, Estimated GFR (MDRD) 58.00, BUN/Creatinine Ratio 23.19, Glucose 90.0, Calcium 8.83, Total Bilirubin 0.77, AST 25.2, ALT 20.9, Alkaline Phosphatase 74.2, Total Protein 6.27 L, Albumin 3.59, Globulin 2.68, Albumin/Globulin Ratio 1.33 10/18/20 04:45: WBC 4.19 L, RBC 3.80 L, Hgb 11.3 L, Hct 35.6 L, MCV 93.7, MCH 29.7, MCHC 31.7 L, RDW Coeff of Shalini 12.7, Plt Count 180, Immature Gran % (Auto) 0.5, Neut % (Auto) 43.2, Lymph % (Auto) 43.2, [place] % (Auto) 8.6, Eos % (Auto) 3.8, Baso % (Auto) 0.7, Neut # (Auto) 1.8 L, Lymph # (Auto) 1.8, [place] # (Auto) 0 .4, Eos # (Auto) 0.2, Baso # (Auto) 0.0, Immature Gran # (Auto) 0.0 10/17/20 15:23: Total Creatine Kinase 99.4, Troponin I < 0.012 10/17/20 09:55: Troponin I < 0.012 10/17/20 09:40: Urine Color Yellow, Urine Clarity Clear, Urine pH 5.0, Ur Specific [place] 1.020, Urine Protein Negative, Urine Glucose (UA) Negative, Urine Ketones Negative, Urine Blood Negative, Urine Nitrite Negative, Urine Bilirubin Negative, Urine Urobilinogen 0.2, Ur Leukocyte Esterase 1+ H, Urine Microscopic WBC 10-20, Ur Squamous Epith Cells 0-2, Urine Mucus Trace 10/16/20 18:41: Thyroxine (T4) 10.4 PLAN: DISCHARGE: HOME TODAY, INDEPENDENT ACTIVITY: UP TOLERATED WITH NO ASSISTIVE DEVICE NO STRENUOUS ACTIVITY UNTIL RELEASED BY MD STAY IN DOORS WHILE HOT OUTSIDE BLEEDING PRECAUTIONS PANDEMIC PRECAUTIONS DIET: HEART HEALTHY FOLLOW UP: DR. CRYSTAL/ ZACKARY DIAZ APRN/ KENYA SHAVER APRN IN THE OFFICE ON 10/22/2020 @ 10:[address] CRYSTAL WOULD FOLLOW A PCP, DR. CRYSTAL ACCEPTED CALL IF ANY CONCERNS@ [phone] [id number] CODE STATUS: FULL CODE MRS GREENWOOD IS ALERT AND ORIENTED X 4. SHE HAS REMAINED PLEASANT. SHE HAS DENIED ANY SOA SINCE ED VISIT. LUNGS ARE CLEAR. SHE IS UP TOLERATED WITH NO ASSISTIVE DEVICE AND NO FURTHER WEAKNESS. SKIN IS WARM AND DRY AND INTACT. NO UNUSUAL BRUISING OR BLEEDING NOTED. SHE FEEDS SELF AND CONSUMES 75% OF MEALS. SHE IS DRINKING ADEQUATE AMOUNT OF FLUIDS. SHE IS CONTINENT OF BOWEL AND BLADDER WITH LAST BM 10/17/2020. SHE LIVES WITH HER AND IS INDEPENDENT. SHE VERBALIZED ELIQUIS PRECAUTIONS, SHE STATED HER TAKES IT. MD ZACKARY FELIX APRN ALYCE HANNAN, APRN
--- NOTE | 2020-10-22 11:52 | ECHO2D ---
Date of Exam: 10/17/2020 Ordering Physician: DR. MITZY CRYSTAL Room #: 102 Reason for Echo: NEW ONSET ATRIAL FIBRILLATION,PALPITATIONS, HTN, RENAL DISEASE M-Mode Normal Adult Results LV Dimensions Normal Adult Results AoV Opening excursions >1.6 >1.6 LVEDD-base- 3.5-5.8 4.9 Ao root dimensions 2.0-3.7 3.4 LVESD-base- 3.1-4.6 L. Atrium dimensions 1.9-3.8 4.5 Post. Wall thickness 0.8-1.1 1.1 IV septum (thickness) 0.7-1.2 1.4 Post. Wall excursion 0.72-1.3 NORMAL Septal motion NORMAL Systolic motion R. Ventricular cavity 1.5-2.0 NORMAL LVEF 60% 58% Paradoxical septal wall motion NORMAL 2-D : 2-D M Mode Echocardiogram was performed using apical four chamber and left parasternal long and short axis views. Mitral, tricuspid and aortic valves appear to be normal. Contractility of the left ventricle seems to be normal, so is the cavity size. Enlarged Left atrial cavity size. Aortic root appears to be normal. There is no pericardial effusion. There is no thrombus noted in the left ventricle or left atrial cavity. M-MODE: MV: NORMAL AV: NORMAL TV: NORMAL PV: CHAMBER SIZE: ENLARGED LEFT ATRIAL CAVITY WALL MOTION: NORMAL PERICARDIUM: NORMAL INTERPRETATION: 1. 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 NORMAL VALVES 3. NORMAL LEFT VENTRICLE CONTRACTILITY MTDD
--- NOTE | 2020-10-22 12:59 | DS ---
DATE OF SERVICE: 10/18/20 CODE STATUS: FULL CODE FINAL DIAGNOSIS: 1. NEW ONSET ATRIAL FIBRILLATION, RATE NOW CONTROLLED 2. HYPERTENSION 3. OBESITY 4. DYSLIPIDEMIA 5. HYPOKALEMIA HX: 6. COLOVESICAL FISTULA 7. DIVERTICULITIS 8. ESSENTIAL HYPERTENSION 9. GERD 10. MILD INTERMITTENT ASTHMA 11. MIXED HYPERLIPIDEMIA 12. RECURRENT UTI - ON MACROBID PROPHYLAXIS 13. OBESITY 14. POST-MENOPAUSAL 15. PRIMARY OA INVOLVING MULTIPLE JOINTS 16. VIT D DEFICIENCY PROCEDURES: 17. CARDIAC CATH X 2, ONE PER DR. WEATHERS WITH MINIMAL BLOCKAGE, 2ND AT [facility] (RECORDS TO BE REQUESTED) ? DATES 18. CHOLECYSTECTOMY 19. COLON SURGERY 20. INCISIONAL HERNIA REPAIR 21. INGUINAL HERNIA REPAIR, RIGHT 22. JOINT REPLACEMENT 23. TOTAL KNEE ARTHROPLASTY LEFT 24. TOTAL KNEE ARTHROPLASTY RIGHT 06/16/2018 25. TUBAL LIGATION LAST VITALS Temp Pulse Resp BP Pulse Ox 97.1 F L 60 16 155/77 H 98 10/18/20 06:00 10/18/20 06:00 10/18/20 07:29 10/18/20 06:00 10/18/20 06:00 DISCHARGE INSTRUCTIONS: 1. DISCHARGE: HOME TODAY, INDEPENDENT 2. FOLLOW UP: DR. CRYSTAL/ZACKARY DIAZ APRN/KENYA SHAVER APRN IN THE OFFICE ON 10/22/2020 @ 10:00, PATIENT ASKED IF DR. CRYSTAL WOULD FOLLOW A PCP, DR. CRYSTAL ACCEPTED. CALL IF ANY CONCERNS@ [phone]. [address] [facility]. [id number]. MEDICATIONS AT DISCHARGE: Apixaban (Apixaban 5 Mg Tab) 5 mg PO BID [facility] -- ( NEW) Last Admin: 10/18/20 09:07 Dose: 5 mg Atorvastatin Calcium (Atorvastatin Calcium 20 Mg Tablet) 20 mg PO QAM [facility] Last Admin: 10/18/20 09:07 Dose: 20 mg Diltiazem HCl (Diltiazem Hcl 60 Mg Tablet) 60 mg PO Q12HR [facility] -- (NEW) Last Admin: 10/18/20 09:06 Dose: 60 mg Losartan Potassium (Losartan Potassium 25 Mg Tablet) 100 mg PO DAILY IN THE AM [facility] -- ( HOME MED) Last Admin: 10/18/20 09:06 Dose: 100 mg Nitrofurantoin Macrocrystals (Nitrofurantoin Macrocrystal 50 Mg Capsule) 100 mg PO BEDTIME [facility] Last Admin: 10/17/20 20:48 Dose: Not Given Omeprazole (Omeprazole 20 Mg Capsule.Dr) 20 mg PO BEDTIME [facility] Last Admin: 10/17/20 20:45 Dose: 20 mg POTASSIUM 20 MEQ PO BID X 5 DAYS -- (NEW) ATENOLOL 25 MG PO IN THE AM -- (CHANGED HOME MED) VITAMIN D 50,000 UNITS PO WEEKLY -- (HOME MED) NEW PRESCRIPTIONS: POTASSIUM 20 MEQ PO BID X 5 DAYS COZAAR 100 MG PO IN THE AM ATENOLOL CHANGED TO 25 MG PO IN THE AM ELIQUIS 5 MG PO BID CARDIZEM 60 MG PO BID DISCONTINUED MEDICATIONS: AMLODIPINE ASPIRIN ATENOLOL 100 MG BY MOUTH DAILY ( DOSAGE WAS CHANGED) DIET INSTRUCTIONS: HEART HEALTHY ACTIVITY: UP TOLERATED WITH NO ASSISTIVE DEVICE NO STRENUOUS ACTIVITY UNTIL RELEASED BY MD STAY IN DOORS WHILE HOT OUTSIDE BLEEDING PRECAUTIONS PANDEMIC PRECAUTIONS SMOKING: N/A DISEASE SPECIFIC EDUCATION: A-FIB HYPERTENSION MEDICATIONS ACTIVITY PRECAUTIONS BLEEDING PRECAUTIONS HEART HEALTHY DIET COVID 19/PANDEMIC PRECAUTIONS HOSPITAL COURSE: 75-year-old white female was hospitalized with atrial fibrillation, rapid ventricular response. The patient's duration of symptoms, palpitations since morning of hospitalization. The patient's heart rate was approximately 130 to 140/min. The blood pressure was elevated. The patient was treated in the emergency room with Cardizem drip. The patient did not have any myocardial event. Once the rate was controlled, the patient started feeling a lot better. The next morning, the patient was seen and examined by me. Cardiovascular status was stable. Rate was 90 to 100/min. The patient converted to sinus rhythm approximately 14 hours after her onset of atrial fibrillation on her own. The patient had hypotension. She was taken off Atenolol, Losartan for the timebeing. The patient was continued to be monitored. She continued to be in sinus rhythm. Echo showed normal LV contractility. LV size was normal. LA cavity was 4.4 cm. Valvular structures are normal. No thrombus or thrombi were noted. The patient was restarted at the time of discharge on Cozaar to be taken 100 mg every day. Potassium supplements were given because of mild hypokalemia which is to be taken for five days. Atenolol was changed to 25 mg in the morning. Eliquis 5 mg twice a day, Cardizem 60 mg twice a day. The patient has been thoroughly explained about Eliquis and side effects like GI bleed and intracranial bleed. I strongly advised not to take any nonsteroidal antiinflammatory with it. CHADS VASC score was considered for medications like Amiodarone or Flecainide or Multag but again she was not started on it. These medictions could be used to keep the patient in sinus rhythm. Again, the patient is going to be followed as an outpatient. She is going to be seen on Wednesday. Expressed the desire to be followed by me and make me also her primary care. CONDITION AT TIME OF DISCHARGE: Stable. TIME SPENT: More than 60 minutes. EFRA
--- NOTE | 2020-10-22 13:06 | CONS ---
BILLING 10/17/20 CONSULTATION 10/18/20 DISCHARGE SUMMARY EXTENSIVE NOTE: The patient was hospitalized under hospitalist but I had the patient talk to Dr. York who was present on the day of discharge and the case was discussed with him. EFRA
--- NOTE | 2020-10-23 11:36 | CONS ---
DATE OF CONSULTATION: 10/17/2020 REASON FOR CONSULTATION: Fluttering in her chest, weakness and shortness of air with progression throughout the days. Started yesterday morning not associated with any event. HISTORY OF PRESENT ILLNESS: Cardiac cath within normal limits greater than 10 years ago Hypertension Obesity Dyslipidemia REVIEW OF SYSTEMS: CONSTITUTIONAL: No night sweats. Fatigue-minimal now. No fever or chills. HEENT: Eyes: No visual changes. No eye pain. No eye discharge. ENT: No sinus drainage. No epistaxis. No sinus pain. No sore throat. No odynophagia. No ear pain. No congestion. RESPIRATORY: No cough, no congestion. No hemoptysis. No shortness of breath. CARDIOVASCULAR: No angina symptoms. No CHF symptoms. No atypical chest pain for CAD. Palpitations. No orthopnea. GASTROINTESTINAL: No abdominal pain. No nausea or vomiting. No diarrhea or constipation. No hematemesis. No hematochezia. GENITOURINARY: No urgency. No frequency. No dysuria. No hematuria. No obstructive symptoms. No discharge. No pain. No significant abnormal bleeding. On Macrodantin maintenance dose. MUSCULOSKELETAL: No musculoskeletal pain. No joint swelling. NEUROLOGICAL: No headache. No neck pain. No syncope. No seizures. No dizziness. PSYCHIATRIC: Not anxious. No depression. No suicidal thoughts. No homicidal thoughts. SKIN: No rash. No lesions. No wounds. ENDOCRINE: No unexplained weight loss. No weight gain. A1c 5.86 (10/17/2020) HEMATOLOGIC/LYMPHATIC: No anemia. No purpura. No petechiae. No prolonged or excessive bleeding. No palpable lymph nodes. MEDICATIONS: Omeprazole Nitrofurantoin Macrocystral Losartan Vitamin D2 Atorvastatin Aspirin Amlodipine ALLERGIES: PAST MEDICAL HISTORY: Colovesical fistula Diverticulitis Essential hypertension GERD Mild intermittent asthma mixed hyperlipidemia Obesity Post-menopausal Primary OA involving multiple joints Vitamin D deficiency Recurrent UTI- On Macrobid PAST SURGICAL HISTORY: Cardiac cath Cholecystectomy Colon surgery Tubal ligation Incisional hernia repair 2013 Inguinal hernia repair Joint replacement TKA left TKA right 06/16/2018 SOCIAL/PERSONAL/FAMILY HISTORY: SMOKE HISTORY: As a teen. ALCOHOL USE: No. PHYSICAL EXAMINATION: VITAL SIGNS: Pulse 108, blood pressure 153/123, temperature 97.0, oxygen saturation 99%, weight 200, height 5'2. HEENT: Head normocephalic, atraumatic. Eyes: Extraocular muscles are intact. Pupils are equal, round and reactive to light and accommodation. Ears: No lesions. Nose appeared normal. Throat: No exudate or erythema. NECK: Supple. No JVD, no carotid bruit. No lymphadenopathy or thyromegaly. LUNGS: Clear to auscultation. Equal. Percussion note normal. Chest symmetrical. HEART: S1, S2, no S3. No murmurs. No cyanosis or clubbing. No ascites. Pulses: Dorsalis pedis and posterior tibial pulses +2 bilaterally. ABDOMEN: Soft. Nontender. Bowel sounds active. No CVA tenderness. No mass felt. EXTREMITIES: No edema. Full range of motion of all extremities, equal. NEUROLOGIC: No focal deficit. Cranial nerves II through XII are grossly intact. No headache, no double vision or headache. SKIN: Not dry. Intact. Turgor - normal. LYMPHATIC: No palpable lymph nodes/no lymphedema. MUSCULOSKELETAL: Normal joints with no swelling. Muscle tone is normal. LABS: Chest x-ray showed hyperinflation. U/A to follow. PCR is within normal limits, Amylase: 101.3, Lipase 124.5, TSH 2.670, T4 1.50. A1c 5.86 (10/17). Triglycerides 189.4, Cholesterol 163.4, LDL 85, VCDL 38, HDL 40.1, Ratio 4.1. Total CK: 162.8//114.5, CK-MB:2.460, CK-MB%: 1.5100. Troponin <0.012 times 3. WBC 6.20, hgb 13.9, hct 41.6, plt count 244. Sodium 140.6, potassium 4.13, chloride 104.9, Bicarb 26.9, BUN 27.1, creatinine 1.39, glucose 98.2. ASSESSMENT: 1. New onset atrial fibrillation, now sinus rhythm converted 1:30am. 2. Hypertension 3. Obesity 4. Dyslipidemia RECOMMENDATIONS: 1. Agreed with Eliquis 2. Continue Cardizem PO BID 3. Losartan 4. Monitor 5. Education about Eliquis (GI Bleed and intracranial bleed and No NSAIDS discussed) 6. Echo: LVH with enlarged LA cavity Thank for referral. We will follow. MTDD
== END 2020-10-18 13:05 | disposition home or self-care (01) | DRG 305 ==
LOC: ED 18:20 → MEDSURG A 21:09
PROVIDERS: ADMIT Emergency Medicine; ATTEND Emergency Medicine
DX: Z20.822 Contact with and (suspected) exposure to COVID-19; R53.1 Weakness; R06.02 Shortness of breath; I10 Essential (primary) hypertension; E66.9 Obesity, unspecified; E78.5 Hyperlipidemia, unspecified; E87.6 Hypokalemia; R42 Dizziness and giddiness; R00.2 Palpitations